=== PATIENT | male | born 1970 | race Caucasian/White ===

== ENCOUNTER 2017-11-24 15:53 | Emergency (ER) | payer MEDICARE, OTHER ==
[2017-11-24 16:05] VITALS: TEMP 98.8
[2017-11-24] MEDS ORDERED: SODIUM CHLORIDE 0.9% 1,000 ML IV STA (16:14)
[2017-11-24] MEDS ORDERED: SODIUM CHLORIDE 0.9% 500 ML IV STA (16:14)
--- NOTE | 2017-11-24 16:17 | ED ---
Altered Mental Status HPI - General Chief Complaint: Altered Mental Status Stated Complaint: altered mental status Time Seen by Provider: 11/24/17 16:08 Source: old records reviewed Mode of arrival: wheelchair Limitations: language barrier, altered mental status - History of Present Illness Initial Comments: This is a 47-year-old male with a history of autism was nonverbal history of mental retardation history of some type of blood clot in his brain earlier this year who is brought in for evaluation due to decreased level of consciousness decrease activity change in mental status. No reported fevers chills nausea vomiting sweats no reports of trauma cough phlegm production or dysuria. Apparently his diets been good he does have dental issues which she is supposed to be evaluated for. Currently no other modifying factors MD Complaint: altered mental status, decreased responsiveness - Related Data Home Medications Medication Instructions Recorded Confirmed Colloidal Oatmeal [Eucerin Eczema 1 applic TOPICAL BID 03/07/17 11/24/17 Relief] Sodium Chloride [Swift] 1 spray EA NOSTRIL QID PRN 03/07/17 11/24/17 ARIPiprazole [Abilify] 10 mg PO DAILY 11/24/17 11/24/17 Acetaminophen [Tylenol] 500 mg PO Q4-6H PRN 11/24/17 11/24/17 Clindamycin HCl [Cleocin] 300 mg PO BID 11/24/17 11/24/17 Loratadine [Claritin] 10 mg PO DAILY 11/24/17 11/24/17 Warfarin Sodium [Coumadin] 5 mg PO DAILY 11/24/17 11/24/17 cloNIDine HCL [Catapres] 0.1 mg PO TID@0800,1400,2000 11/24/17 11/24/17 clonazePAM [KlonoPIN] 1 mg PO TID 11/24/17 11/24/17 Allergies Allergy/AdvReac Type Severity Reaction Status Date / Time No Known Allergies Allergy Verified 11/24/17 16:25 Review of Systems ROS Statement: Those systems with pertinent positive or pertinent negative responses have been documented in the HPI. ROS Other: All systems not noted in ROS Statement are negative. Past Medical History Additional Past Medical History / Comment(s): PICA, rumination, autism, OCD, non verbal, mother states he has the mental capacity of maybe a 5 yrs old, very active, walks independently, dental problems. History of Any Multi-Drug Resistant Organisms: None Reported Past Surgical History: No Surgical Hx Reported Past Anesthesia/Blood Transfusion Reactions: Unable to Obtain Past Psychological History: ADD/ADHD Smoking Status: Never smoker Past Alcohol Use History: None Reported Past Drug Use History: None Reported - Past Family History Mother Family Medical History: No Reported History Additional Family Medical History / Comment(s): Mother states she is 82 yrs old and healthy. Father Family Medical History: No Reported History Additional Family Medical History / Comment(s): Father was healthy and lived to be 91 yrs old. General Exam - General Exam Comments Initial Comments: This a well-developed well-nourished awake alert but lethargic male who is nonverbal. Initial blood pressure noted to be 91/61 Limitations: language barrier, altered mental status General appearance: alert, in no apparent distress Head exam: Present: atraumatic, normocephalic, normal inspection Eye exam: Present: normal appearance, PERRL, EOMI. Absent: scleral icterus, conjunctival injection, periorbital swelling ENT exam: Present: mucous membranes dry, other (Poor dentition no evidence of any abscess no drainage) Neck exam: Present: normal inspection. Absent: tenderness, meningismus, lymphadenopathy Respiratory exam: Present: normal lung sounds bilaterally. Absent: respiratory distress, wheezes, rales, rhonchi, stridor Cardiovascular Exam: Present: regular rate, normal rhythm, normal heart sounds. Absent: systolic murmur, diastolic murmur, rubs, gallop, clicks GI/Abdominal exam: Present: soft, normal bowel sounds. Absent: distended, tenderness, guarding, rebound, rigid Extremities exam: Present: normal inspection, full ROM, normal capillary refill. Absent: tenderness, pedal edema, joint swelling, calf tenderness Back exam: Present: normal inspection Neurological exam: Present: alert, altered, CN II-XII intact Psychiatric exam: Present: flat affect Skin exam: Present: warm, dry, intact, normal color. Absent: rash Course Vital Signs 11/24/17 16:02 Temperature 98.8 F Pulse Rate 98 Respiratory 18 Rate Blood Pressure 91/61 O2 Sat by Pulse 96 Oximetry Medical Decision Making - Medical Decision Making Reevaluation patient on 2 occasions reveals him to be more awake and alert per the caregiver patient will be discharged the presentation is consistent with fine depletion he is encourage increase fluids - Lab Data Result diagrams: 11/24/17 16:20 11/24/17 16:20 Lab Results 11/24/17 11/24/17 11/24/17 Range/Units 16:20 16:20 16:20 WBC (3.8-10.6) k/uL RBC (4.30-5.90) m/uL Hgb (13.0-17.5) gm/dL Hct (39.0-53.0) % MCV (80.0-100.0) fL MCH (25.0-35.0) pg MCHC (31.0-37.0) g/dL RDW (11.5-15.5) % Plt Count (150-450) k/uL Neutrophils % % Lymphocytes % % Monocytes % % Eosinophils % % Basophils % % Neutrophils # (1.3-7.7) k/uL Lymphocytes # (1.0-4.8) k/uL Monocytes # (0-1.0) k/uL Eosinophils # (0-0.7) k/uL Basophils # (0-0.2) k/uL Sodium (137-145) mmol/L Potassium (3.5-5.1) mmol/L Chloride (98-107) mmol/L Carbon Dioxide (22-30) mmol/L Anion Gap mmol/L BUN (9-20) mg/dL Creatinine (0.66-1.25) mg/dL Est GFR (CKD-EPI)AfAm (>60 ml/min/1.73 sqM) Est GFR (CKD-EPI)NonAf (>60 ml/min/1.73 sqM) Glucose (74-99) mg/dL Calcium (8.4-10.2) mg/dL Magnesium 1.9 (1.6-2.3) mg/dL Total Bilirubin (0.2-1.3) mg/dL AST (17-59) U/L ALT (21-72) U/L Alkaline Phosphatase (38-126) U/L Ammonia 16 (<30) umol/L Total Creatine Kinase 58 (55-170) U/L CK-MB (CK-2) 1.0 (0.0-2.4) ng/mL CK-MB (CK-2) Rel Index 1.7 Total Protein (6.3-8.2) g/dL Albumin (3.5-5.0) g/dL Urine Color Urine Appearance (Clear) Urine pH (5.0-8.0) Ur Specific [place] (1.001-1.035) Urine Protein (Negative) Urine Glucose (UA) (Negative) Urine Ketones (Negative) Urine Blood (Negative) Urine Nitrite (Negative) Urine Bilirubin (Negative) Urine Urobilinogen (<2.0) mg/dL Ur Leukocyte Esterase (Negative) 11/24/17 11/24/17 11/24/17 Range/Units 16:20 16:20 17:35 WBC 11.0 H (3.8-10.6) k/uL RBC 4.80 (4.30-5.90) m/uL Hgb 13.3 (13.0-17.5) gm/dL Hct 40.6 (39.0-53.0) % MCV 84.7 (80.0-100.0) fL MCH 27.8 (25.0-35.0) pg MCHC 32.8 (31.0-37.0) g/dL RDW 13.6 (11.5-15.5) % Plt Count 308 (150-450) k/uL Neutrophils % 59 % Lymphocytes % 28 % Monocytes % 8 % Eosinophils % 3 % Basophils % 1 % Neutrophils # 6.4 (1.3-7.7) k/uL Lymphocytes # 3.0 (1.0-4.8) k/uL Monocytes # 0.8 (0-1.0) k/uL Eosinophils # 0.4 (0-0.7) k/uL Basophils # 0.1 (0-0.2) k/uL Sodium 140 (137-145) mmol/L Potassium 4.5 (3.5-5.1) mmol/L Chloride 105 (98-107) mmol/L Carbon Dioxide 23 (22-30) mmol/L Anion Gap 12 mmol/L BUN 24 H (9-20) mg/dL Creatinine 0.87 (0.66-1.25) mg/dL Est GFR (CKD-EPI)AfAm >90 (>60 ml/min/1.73 sqM) Est GFR (CKD-EPI)NonAf >90 (>60 ml/min/1.73 sqM) Glucose 76 (74-99) mg/dL Calcium 8.7 (8.4-10.2) mg/dL Magnesium (1.6-2.3) mg/dL Total Bilirubin 0.3 (0.2-1.3) mg/dL AST 69 H (17-59) U/L ALT 51 (21-72) U/L Alkaline Phosphatase 131 H (38-126) U/L Ammonia (<30) umol/L Total Creatine Kinase (55-170) U/L CK-MB (CK-2) (0.0-2.4) ng/mL CK-MB (CK-2) Rel Index Total Protein 6.8 (6.3-8.2) g/dL Albumin 3.4 L (3.5-5.0) g/dL Urine Color Light Yellow Urine Appearance Clear (Clear) Urine pH 6.0 (5.0-8.0) Ur Specific [place] 1.008 (1.001-1.035) Urine Protein Negative (Negative) Urine Glucose (UA) Negative (Negative) Urine Ketones Negative (Negative) Urine Blood Negative (Negative) Urine Nitrite Negative (Negative) Urine Bilirubin Negative (Negative) Urine Urobilinogen <2.0 (<2.0) mg/dL Ur Leukocyte Esterase Negative (Negative) - Radiology Data Radiology results: report reviewed (I did review the imaging and report or is really no acute findings the question of some bronchitis), image reviewed Disposition Clinical Impression: Dehydration Disposition: HOME SELF-CARE Condition: Good Instructions: Altered Mental Status (ED), Dehydration (ED) Is patient prescribed a controlled substance at d/c from ED?: No Referrals: Felipe Zarco MD [Primary Care Provider] - 1-2 days
--- NOTE | 2017-11-24 16:44 | CT ---
EXAMINATION TYPE: CT brain wo con DATE OF EXAM: 11/24/2017 COMPARISON: 03/07/2017 HISTORY: 47-year-old male with pain, confusion, mental status TECHNIQUE: Examination was done in axial plane without intravenous contrast. Coronal and sagittal r econstructions performed. CT DLP: 1081.6 mGycm Automated exposure control for dose reduction was used. FINDINGS: There is no evidence of acute intracranial hemorrhage, acute ischemic changes, mass, mass-effect, or extra-axial fluid collection. There is no effacement of cerebral sulci or basal subarachnoid cister ns. There is no hydrocephalus. There is no midline shift. Turner-white matter distinction is preserv ed. The previous described high attenuation within the posterior deep venous system has resolved. Cerumen within the bilateral external auditory canals. Old minimally depressed right-sided nasal bone fracture with leftward nasal septal deviation. Orbits and globes are intact. IMPRESSION: No acute intracranial abnormality seen.
--- NOTE | 2017-11-24 16:57 | XR ---
EXAMINATION TYPE: XR chest 2V DATE OF EXAM: 11/24/2017 COMPARISON: 03/07/2017 HISTORY: 47-year-old male with cough TECHNIQUE: Frontal and lateral views FINDINGS: Heart normal size. Aorta and pulmonary vasculature within normal limits. Mild interstitial prominence . Motion of the lung bases on the lateral view. No significant pleural effusion. No bill consolidati on seen. Rounded retrocardiac density suggests a moderate-sized hernia. IMPRESSION: Interstitial prominence may reflect bronchitis or asthma. No definite focal pneumonia seen. Suspect a moderate-sized hiatal hernia.
[2017-11-24 17:49] LABS: Appearance,Urine Clear (Clear); Bilirubin,Urine Negative (Negative); Blood,Urine Negative (Negative); Color,Urine Light Yellow; Glucose,Urine (UA) Negative (Negative); Ketones,Urine Negative (Negative); Leukocyte Esterase,Urine Negative (Negative); Nitrite,Urine Negative (Negative); Protein,Urine Negative (Negative); Specific Gravity,Urine 1.008 (1.001-1.035); Urobilinogen,Urine <2.0 mg/dL (<2.0)
[2017-11-24 18:01] LABS: ALT 51 U/L (21-72); AST 69 U/L (17-59); Albumin 3.4 g/dL (3.5-5.0); Alkaline Phosphatase 131 U/L (38-126); Anion Gap 12 mmol/L; Blood Urea Nitrogen 24 mg/dL (9-20); Calcium 8.7 mg/dL (8.4-10.2); Carbon Dioxide 23 mmol/L (22-30); Chloride 105 mmol/L (98-107); Glucose 76 mg/dL (74-99); Potassium 4.5 mmol/L (3.5-5.1); Sodium 140 mmol/L (137-145); Total Bilirubin 0.3 mg/dL (0.2-1.3); Total Protein 6.8 g/dL (6.3-8.2)
[2017-11-24 18:05] LABS: Basophils # (A) 0.1 k/uL (0-0.2); Basophils % (A) 1 %; Eosinophils # (A) 0.4 k/uL (0-0.7); Eosinophils % (A) 3 %; HCT 40.6 % (39.0-53.0); HGB 13.3 gm/dL (13.0-17.5); Lymphocytes % (A) 28 %; MCH 27.8 pg (25.0-35.0); MCHC 32.8 g/dL (31.0-37.0); MCV 84.7 fL (80.0-100.0); Mean Platelet Volume 6.8; Monocytes # (A) 0.8 k/uL (0-1.0); Monocytes % (A) 8 %; Neutrophils # (A) 6.4 k/uL (1.3-7.7); Neutrophils % (A) 59 %; Platelet Count 308 k/uL (150-450); RDW 13.6 % (11.5-15.5)
[2017-11-24 18:49] VITALS: BP 105/76; PULSE 88; RESP 16
== END 2017-11-24 18:50 | disposition home or self-care (01) ==
LOC: EEVIPCON 15:53 → EC 15:53
DX: E86.0 Dehydration (principal); R41.82 Altered mental status, unspecified; F84.0 Autistic disorder; F90.9 Attention-deficit hyperactivity disorder, unspecified type; F42.9 Obsessive-compulsive disorder, unspecified; Z79.01 Long term (current) use of anticoagulants; Z79.899 Other long term (current) drug therapy
CPT/HCPCS: 36415; 70450; 71046; 80053; 81003; 82140; 82550; 82553; 83735; 85025; 96360; 96361; 99285